=== PATIENT | female | born 1945 | race Caucasian/White ===

== ENCOUNTER 2017-07-19 10:19 | Observation (INO) | payer OTHER, MEDICARE ==
[~2017-07-19] VITALS: Ht 154.9 cm; Wt 84.6 kg
[~2017-07-19 10:19] MED LIST: ASPIR 8181 M1 PO; Ascorbic Acid,Ester- PO; CALCIUM 500 MG1 EACH PO; CLARITIN,ALAVAR10 MG PO; COZAAR100 MG PO; Claritin,Alavart PO; Cozaar PO; Ecotrin PO; FENOFIBRATE160 M1 PO; FISH OIL 1,0001 EAC7 PO; FLONASE16 G1 BOTH NARES; Feosol PO; Flonase BOTH NARES; Folvite PO; Fosamax PO; METRONIDAZOLE45 G1 TP; OCUVITE TABLET1 EACH PO; PRILOSEC20 MG PO; PriLOSEC PO; Tricor PO; VANTIN200 MG PO; VITAMIN D2000 UNI1 PO; Vicodin,Norco 5/325 PO; ZOCOR40 MG PO; Zocor PO; celeBREX PO
[2017-07-19 11:07] LABS: HEMATOCRIT 44.3 % (36.0-46.0); HEMOGLOBIN 14.8 G/DL (11.9-15.5); MCH 30.3 PG (29.0-34.0); MCHC 33.4 G/DL (30.0-36.0); MCV 90.6 FL (83-99); PLATELET COUNT 256 K/uL (156-360); RBC DIS.WIDTH-SD 46.5 % (39-53); RED BLOOD COUNT 4.89 M/uL (3.80-5.20)
[2017-07-19 11:16] LABS: PTT 30.2 SEC (25-37)
[2017-07-19 11:17] LABS: CHLORIDE 105 mEq/L (99-109); POTASSIUM 4.2 mEq/L (3.7-5.4); SODIUM 140 mEq/L (136-147)
[2017-07-19 11:19] LABS: GLUCOSE 98 mg/dL (70-99)
[2017-07-19 11:23] LABS: CREATININE 1.2 mg/dL (0.6-1.3); GFR ESTIMATE (CALCULATED) 47 mL/min/
[2017-07-19 11:24] LABS: UREA NITROGEN (BUN) 19 mg/dL (9-23)
[2017-07-19 11:32] LABS: TROP-I INTERPRETATION NEGATIVE; TROPONIN-I 0.01 ng/mL (0.0-0.30)
[2017-07-19] MEDS ORDERED: CALCIUM + D SO1 EACH PO (12:28)
[2017-07-19] MEDS ORDERED: ALLEGRA ALLERG180 MG PO (12:29)
[2017-07-19] MEDS ORDERED: ESTER-C 1,0001 EACH PO (12:30)
[2017-07-19] MEDS ORDERED: COZAAR100 MG PO (12:30)
[2017-07-19 16:24] LABS: HDL CHOLESTEROL 51 MG/DL (Desirable>=50); LDL CHOLESTEROL 58 mg/dL (Desirable<100); NON-HDL CHOLESTEROL 89 mg/dL (Desirable<160); TOTAL CHOLESTEROL 140 mg/dL (Desirable<200); TRIGLYCERIDES 154 MG/DL (Normal: <150)
[2017-07-19 16:52] VITALS: BP 133/88
[2017-07-19 20:05] VITALS: BP 128/60
[2017-07-20 00:37] VITALS: BP 124/58
[2017-07-20 04:18] VITALS: BP 129/61
[2017-07-20 06:07] LABS: HEMATOCRIT 42.5 % (36.0-46.0); MCHC 32.9 G/DL (30.0-36.0); MCV 91.2 FL (83-99); PLATELET COUNT 247 K/uL (156-360); RBC DIS.WIDTH-CV 14.2 % (11.8-14.6); RBC DIS.WIDTH-SD 47.5 % (39-53); RED BLOOD COUNT 4.66 M/uL (3.80-5.20); WHITE BLOOD COUNT 9.3 K/uL (4.1-10.2)
[2017-07-20 07:45] VITALS: BP 124/58
[2017-07-20] MEDS ORDERED: MEDROL DOSEPAK4 MG PO (09:21)
[2017-07-20] MEDS ORDERED: ACYCLOVIR800 MG PO (09:21)
[2017-07-20 13:57] LABS: HEMOGLOBIN A1c (GLYCOHEMOGLOB) 5.3 % (Below 5.7)
== END 2017-07-20 09:22 | disposition home or self-care (01) ==
LOC: EME 10:19 → EDOF 13:10 → ENRESERV 13:13 → 5WEST 16:38 → ENPENDDIS 07-20 09:24
PROVIDERS: Emergency Medicine; Physician Assistant
DX: G51.0 Bell's palsy (principal); I10 Essential (primary) hypertension; E78.5 Hyperlipidemia, unspecified; Z79.82 Long term (current) use of aspirin; K21.9 Gastro-esophageal reflux disease without esophagitis; E55.9 Vitamin D deficiency, unspecified; L71.9 Rosacea, unspecified; Z86.19 Personal history of other infectious and parasitic diseases; M26.603 Bilateral temporomandibular joint disorder, unspecified; Z90.710 Acquired absence of both cervix and uterus; Z82.49 Family history of ischemic heart disease and other diseases of the circulatory system; Z82.5 Family history of asthma and other chronic lower respiratory diseases; Z88.6 Allergy status to analgesic agent; Z88.5 Allergy status to narcotic agent; Z88.8 Allergy status to other drugs, medicaments and biological substances
CPT/HCPCS: 70450; 70551; 80048; 80061; 81003; 83036; 84484; 85027; 85610; 85730; 93005; 93880; 99281; 99285; G0378; J1650; J1885; J2060; J7509; J7512